=== PATIENT | female | born 1960 | race Caucasian/White ===

== ENCOUNTER → 2017-02-05 | Outpatient (CLI) | payer OTHER ==
[~2017-02-05] MED LIST: ADVIN10/60 INH; ALBU1AER9 INH; ASCO1TAB3 PO; CALCIUM 600+D+D OR; CHOL200010 OR; CPR500 PO; FLAX OIL OR; FLUO20CA20 OR; IBUP600T44 PO; MULT-506 PO; OXYC-57 PO; PRLSR20 PO; SNG10 PO; TRIA3AER NAE; VTMD PO; [UNRECOGNIZED DRUG - CODE] PO; [UNRECOGNIZED DRUG - OTHER] INH
== END ==
LOC: C.PAPS 18:04
PROVIDERS: ATTEND Obstetrics & Gynecology
DX: Z12.4 Encounter for screening for malignant neoplasm of cervix (principal)

== ENCOUNTER → 2018-01-02 | Outpatient (CLI) | payer OTHER | END | disposition home or self-care (01) | LOC: C.RDSM 13:43 | PROVIDERS: ATTEND Physical Medicine & Rehabilitation Sports Medicine | DX: M25.561 Pain in right knee (principal); M25.562 Pain in left knee ==

== ENCOUNTER 2021-11-27 06:21 | Observation (INO) ==
--- NOTE | 2021-11-15 16:40 | PAT Medication Instructions ---
Medication Instructions Date of Service November 15, 2021 Home Medications Balance Otc 1 tab PO QAM arginine oxoglurate 350 mg tablet,extended release (L-Arginine (alpha- ketoglutarate)) 750 mg PO QAM celecoxib 200 mg capsule (Celebrex) 200 mg PO QPM cetirizine 10 mg tablet (Zyrtec) 10 mg PO QPM ergocalciferol (vitamin D2) 1,250 mcg (50,000 unit) capsule (Vitamin D2) 1,250 mcg PO WK eszopiclone 2 mg tablet (Lunesta) 2 mg PO HS fluoxetine 10 mg tablet 10 mg PO QAM losartan 100 mg tablet 100 mg PO QPM multivitamin 1 tab PO QAM omeprazole 10 mg capsule,delayed release 10 mg PO QAM Continue as directed ergocalciferol (vitamin D2) 1,250 mcg (50,000 unit) capsule (Vitamin D2) 1,250 mcg PO WK (just do not take on morning of surgery) ASK your surgeon for instructions celecoxib 200 mg capsule (Celebrex) 200 mg PO QPM STOP taking 2 weeks before surgery Chrissy Adame Otc 1 tab PO QAM arginine oxoglurate 350 mg tablet,extended release (L-Arginine (alpha- ketoglutarate)) 750 mg PO QAM DO NOT take the morning of surgery multivitamin 1 tab PO QAM Take morning of surgery With a small sip of water, OTHERWISE NOTHING TO EAT OR DRINK AFTER MIDNIGHT: fluoxetine 10 mg tablet 10 mg PO QAM omeprazole 10 mg capsule,delayed release 10 mg PO QAM Take evening before surgery cetirizine 10 mg tablet (Zyrtec) 10 mg PO QPM eszopiclone 2 mg tablet (Lunesta) 2 mg PO HS losartan 100 mg tablet 100 mg PO QPM Other Notes If you have any questions please call us at [phone] or [phone] or [phone] or [phone]
--- NOTE | 2021-11-16 08:33 | Anesthesiology Consultation ---
Date of Service November 16, 2021 Assessment & Plan (1) Encounter for pre-operative examination: - egg allergy. - Pt reports PCP pre-op appointment today. Optimization note completed and faxed to PCP prior to end of appointment regarding h/o cardiac murmur. 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 Patient vaccinated. Surgeon arranging preop COVID testing, scheduled 11/23/2021. Awaiting results. Chart Review Chart Review: Pending: Refer to Additional Notes / Consult section and Patient seen in Pre Admission Testing History Surgery Operation Date: 11/27/21 08:10 Proposed Procedures p Left Total Knee Arthroplasty - Tung Rizzo MD Height/Weight Height: 5 ft 1 in Weight: 91.3 kg Allergies Allergy/AdvReac Type Severity Reaction Status Date / Time cefuroxime Allergy Intermediate SEVERE Verified 11/15/21 15:02 ITCHINESS OF FEET AND HANDS heparin Allergy Intermediate HIVES,REDNESS,ITCHINESS-AT Verified 11/15/21 15:02 IV SITE egg Allergy Unknown POSITIVE Verified 11/15/21 15:03 WITH ALLERGY TESTING Medications Home Medications Medication Instructions Recorded Confirmed Last Taken Balance Md Otc 1 tab PO QAM 11/15/21 11/15/21 Unknown arginine oxoglurate 350 mg 750 mg PO QAM 11/15/21 11/15/21 Unknown tablet,extended release (L-Arginine (alpha-ketoglutarate)) celecoxib 200 mg capsule (Celebrex) 200 mg PO QPM 11/15/21 11/15/21 Unknown cetirizine 10 mg tablet (Zyrtec) 10 mg PO QPM 11/15/21 11/15/21 Unknown ergocalciferol (vitamin D2) 1,250 1,250 mcg PO WK 11/15/21 11/15/21 Unknown mcg (50,000 unit) capsule (Vitamin D2) eszopiclone 2 mg tablet (Lunesta) 2 mg PO HS 11/15/21 11/15/21 Unknown fluoxetine 10 mg tablet 10 mg PO QAM 11/15/21 11/15/21 Unknown losartan 100 mg tablet 100 mg PO QPM 11/15/21 11/15/21 Unknown multivitamin 1 tab PO QAM 11/15/21 11/15/21 Unknown omeprazole 10 mg capsule,delayed 10 mg PO QAM 11/15/21 11/15/21 Unknown release Past Medical History Medical History (Updated 11/16/21 @ 09:16 by Bhargavi Newsome PA-C) Anxiety Cancer UTERINE Cardiac murmur HX-NO CARDIOLOGY Chronic back pain NECK-FULL ROM Depression GERD (gastroesophageal reflux disease) controlled, stable per pt History of COVID-19 DX'D 07/20/22 HOME TEST ONLY-SORE THROAT, HEADACHE, LOSS TASTE AND SMELL, FATIGUE, COUGH, CHILLS-RECOVERED AT HOME-SYMPTOMS RESOLVED Hyperlipidemia NO MEDS Hypertension controlled, stable per pt Osteoarthritis Pre-diabetes NO MEDS Patient denies h/o stroke, seizures, heart attack, heart failure, blood clots or blood transfusions. Exercise / Class Metabolic Activity II 4-5 Yardwork/Stairs/Walk up hill (denies CP or SOB with 1 FOS) Past Family History Family History Mother Family history of reaction to anesthesia PONV Family history of diabetes mellitus Past Surgical History Surgical History History of colonoscopy History of hysterectomy TOTAL Nausea and vomiting after administration of anesthetic agent Past Anesthesia History No Hx of Anesthesia Complications and Other (mother with PONV) History of PONV No Hx of Motion Sickness and History of PONV Social History Smoking Status: Never smoker Do You Dip or Chew Tobacco: No Hx Alcohol Use: No Hx Substance Use: No Review of Systems Occasional chronic, palpitations when stressed, denies associated dizziness or lightheadedness. Ongoing x years, denies change or worsening. Patient denies chest pain, shortness of breath, dyspnea on exertion, snoring, witnessed apneas, fever, chills, cough, wheezing. Physical Exam Vital Signs Vitals BP 115/77 P 81 TEMP 98.2 SP02 97% on RA RESP 17 Physical Full cervical extension range of motion without pain TMD 3.5 finger breaths Mallampati Score 2 Dentition: intact, missing-lower left side tooth, several caps and bridge lower bilat-none in front, permanent brace back of lower front teeth; denies chipped or loose teeth Lungs: normal respiratory effort. Clear throughout to auscultation, no adventitious breath sounds Cardiac: regular rate and rhythm, no murmurs noted Carotid arteries: negative bruit bilat Lab Results Anesthesia Preop Results Results Anesthesia Widget: WBC 4.15 K/uL (4.8-10.8) L 11/16/21 Hgb 14.0 g/dL (12.0-16.0) 11/16/21 Hct 43.0 % (37-47) 11/16/21 Plt 281 K/uL (130-400) 11/16/21 PT 10.4 Seconds (9.0-12.0) 11/16/21 PTT 29.0 Seconds (21.0-31.0) 11/16/21 INR 1.0 (0.9-1.1) 11/16/21 HA1c 6.1 % (4.5-5.6) H 11/16/21 Blood Type O Positive 11/16/21 Antibody Screen NEGATIVE 11/16/21 Testing Laboratory Results 11/13/2021 SODIUM: 142 POTASSIUM: 4.3 CHLORIDE: 104 CO2: 32 BUN: 15 CREATININE: 0.5 GLUCOSE: 122 ALT: 44 Alk phos: 97 AST: 56 A1c: 5.9% Electrocardiogram Date: 11/16/21 Sinus rhythm with PACs, rate 67 bpm Chest X-Ray Date: 11/16/21 FINDINGS: Frontal and lateral radiographs of the chest demonstrate the cardiomediastinal silhouette to be within normal limits. The lungs are clear of alveolar opacities. There is no evidence for effusion bilaterally. There is no evidence for vascular congestion. There is no acute osseous pathology. IMPRESSION: 1. No acute cardiopulmonary disease.
[~2021-11-27 06:21] MED LIST changes: +ACETAMINOPHEN 500 MG TAB PO SCH; -ADVIN10/60 INH; -ALBU1AER9 INH; -ASCO1TAB3 PO; -CALCIUM 600+D+D OR; -CHOL200010 OR; -CPR500 PO; +CeleBREX 200 MG CAP PO SCH; +FAMOTIDINE 20 MG TAB PO SCH; -FLAX OIL OR; -FLUO20CA20 OR; +GABAPENTIN 600 MG DOSE PO SCH; -IBUP600T44 PO; +LR 500ML BOLUS, THEN 15ML/HR IV SCH; +LR 60ML/HR IV SCH; +METOCLOPRAMIDE HCL 10 MG TABLET PO SCH; -MULT-506 PO; -OXYC-57 PO; -PRLSR20 PO; +ROPIVACAINE 0.5% HCL/PF 150 MG, BUPIVACAINE 0.75% MPF 20 ML, EPINEPHrine 0.15 MG, Ketor... INFIL SCH; -SNG10 PO; +TRANEXAMIC ACID 1,000 MG **IV Intra-op IV SCH; +TRANEXAMIC ACID 1,000 MG **IV Pre-op IV SCH; -TRIA3AER NAE; -VTMD PO; -[UNRECOGNIZED DRUG - CODE] PO; -[UNRECOGNIZED DRUG - OTHER] INH; +ceFAZolin 2000MG 2,000 MG/15 ML SYR IV SCH; +cloNIDine HCL 0.1 MG/24 HR TRANSDERM SYS TD SCH; +dexAMETHasone 4 MG TAB PO SCH; +oxyCODONE HCL 10 MG TABCR (OxyCONTIN) PO SCH; +traMADol HCL 50 MG TABLET PO SCH
[2021-11-27] MEDS ORDERED: EPINEPHrine INJ 1 MG/ML AMP ONE (06:28)
[2021-11-27] MEDS ORDERED: BUPIVACAINE 0.5 % 5 MG/1 ML PF 10ML VIAL ONE (06:28)
[2021-11-27] MEDS ORDERED: ROPIVACAINE 0.5% 5 MG/ML 30 ML VIAL ONE (06:28)
--- NOTE | 2021-11-27 08:30 | History & Physical Bridge Note ---
Date of Service November 27, 2021 History & Physical Bridge Note I have examined the patient, reviewed the History & Physical and in the interval since the performance of the History & Physical I have noted the following changes of clinical significance: no changes noted
[2021-11-27] MEDS ORDERED: ORTHO JOINT ANESTHETIC ONE (09:00)
[2021-11-27] MEDS ORDERED: VANCOMYCIN HCL 1000MG/20ML VIAL ONE (09:00)
[2021-11-27] MEDS ORDERED: fentaNYL citrate 100 MCG/2 ML VIAL ONE (09:09)
[2021-11-27] MEDS ORDERED: MIDAZOLAM HCL 1 MG/ML 2ML VIAL ONE ×2 (09:09→10:16)
[2021-11-27] MEDS ORDERED: PHENYLEPHRINE HCL 10 MG/ML VIAL ONE (09:10)
[2021-11-27] MEDS ORDERED: PROPOFOL IV EMULSION 10 MG/ML 20 ML VIAL IV ONE ×2 (11:01→11:55)
--- NOTE | 2021-11-27 13:10 | Operative Report ---
Post Operative Report Pre & Post Diagnosis Operation Date: 11/27/21 08:30 Pre-Op Diagnosis: Left Knee Osteoarthritis Post-Op Diagnosis: Left Knee Osteoarthritis I identified the patient and participated in the time-out.: Yes Procedure Operation Date: 11/27/21 08:30 Actual Procedures p Left Total Knee Arthroplasty(Left) - Tung Rizzo MD Surgeon Tung Rizzo MD Pattern Scratcher María Bernard PA-C Estimated Blood Loss 25 Findings Consistent with Post-Op Diagnosis Specimens Bone and soft tissue Anesthesia Type MAC Spinal Regional Description of Procedure Patient was taken to the operating room and placed under IV sedation with spinal anesthesia and given peripheral nerve block. She was given IV Ancef for surgical prophylaxis. Time out was performed. She was prepped and draped in routine sterile fashion. Is present during the entire case and assisted with positioning, tissue retraction, implantation of hardware, trialing of implants, irrigation, cementing, closure and dressings. Please see Dr. Rizzo's operative report for further detail regarding today's procedure. She was awakened and transferred to recovery room in stable condition. I attest to the content of the Intraoperative Record and any orders documented therein. Any exceptions are noted below.
[2021-11-27] MEDS ORDERED: ePHEDrine sulfate 50 MG/ML AMP IV PRN (13:14)
[2021-11-27] MEDS ORDERED: ATROPINE SULFATE 0.1 MG/ML 10ML SYR IV PRN (13:14)
--- NOTE | 2021-11-27 13:14 | Operative Report ---
Post Operative Report Pre & Post Diagnosis Operation Date: 11/27/21 08:30 Pre-Op Diagnosis: Left Knee Osteoarthritis Post-Op Diagnosis: Left Knee Osteoarthritis I identified the patient and participated in the time-out.: Yes Procedure Operation Date: 11/27/21 08:30 Actual Procedures p Left Total Knee Arthroplasty(Left) - Tung Rizzo MD Surgeon Tung Rizzo MD Global Human Resources Director María Bernard. Physicians warehouse administrative assistant. No resident or fellow available. Estimated Blood Loss 25 Findings Consistent with Post-Op Diagnosis Specimens Bone and soft tissue left knee Drains None Complications none Disposition Accompanied Patient To Recovery: No Disposition: Recovery Room Indications Larissa is 61 years old and severe arthritis of her left knee refractory to nonsurgical methods of management. She has elected to proceed with operative intervention. Description of Procedure Informed consent obtained. Patient identified. She identified the operative site as the left knee. I marked with my initials. A preoperative surgical timeout was performed and a preop dose of IV antibiotics was given. She was taken to the operating room positioned supine on the OR table. Bump was placed into the left calf and a tourniquet was applied to the left thigh. The leg was prescrubbed prepped and draped in usual sterile fashion. DVT prophylaxis with foot pumps intraoperatively and postoperatively with early mobility mechanical devices and Lovenox. The exam under anesthesia showed range of motion 0/3/120 with a little more than 1+ LCL laxity in mid position and at 90 degrees. The knee was stable in full extension and she had trace MCL laxity at 30 degrees. There was positive effusion within the knee and varus alignment. Bony prom inences inspected and padded. The limb was exsanguinated with the Esmarch. Tourniquet inflated 275 mmHg. Midline longitudinal incision was made followed by a medial parapatellar arthrotomy. Soft tissue on the anterior aspect the distal femur was resected. A an extensile medial release was performed. The retropatellar fat pad was resected. There seemed to be a fair amount of scarring and tightness laterally. The patella was difficult to jp and bony geometry made it difficult to access the anterolateral quadrant of the knee. The synovial reflection in the lateral gutter was released but a true lateral release was not performed. Marginal osteophytes throughout the knee were removed. There was grade 4 chondrosis in the medial compartment of the knee with onxo-kh-bemn changes and wear medially. The lateral compartment looked pretty normal with an intact meniscus. The medial meniscus was deficient. There was grade 3 chondrosis of the patella with sizable marginal osteophytes. Marginal osteophytes around the patella were removed and the soft tissue around the patella was also excised. The cruciate ligaments were sacrificed and the knee was carefully subluxated. Prior to this I inserted a pin into the tibial tubercle to prevent any damage to the patellar tendon. Subsequently the remainder of the menisci were removed as well as marginal osteophytes throughout the knee both medial more so than lateral. Osteophytes under the collateral ligaments were removed. A pilot plant operator hole was drilled into the tibia just in front of the tibial spines and centered between them. I could not advance the guide krystal all the way down the femur and therefore I use the sentinel reamers under hand power and reaming to open up the canal to a size 8 which allowed insertion of the intramedullary guide krystal. The 0 degree cutting block was aligned with the tibial tubercle pinned in the place and set to cut 10 mm off of the lateral side corresponding to a 2 mm cut medially. The knee was then placed into full extension and the extra medullary alignment krystal was utilized to assess slope and varus valgus alignment. The slope was parallel to the tibia and the krystal bisected the ankle joint and intersected the second ray with the foot in the plantigrade position. We then made the cut. I had some difficulty with the anterolateral quadrant as I could get the saw over there so had to do a good bit of that by hand with rongeur and rasp. I ensured that it was smoothed out all the way across and visualize the full margin of the lateral tibia. Then went ahead and drilled a pilot plant operator hole into the distal femur and inserted the distal distal femoral cutting guide 7 degree valgus 12 mm thick cut based upon preoperative templating. This cut was made and the extension gap was and 8. I then went back and recut the tibia taking additional 2 mm. I did more medial release as well and then we had a symmetric 10 in extension. Perhaps a trace bit of LCL laxity. We then went ahead and sized the femur to a #2. The tibia was previously sized to a #2 as well. The external rotation drill holes were made matching the epicondylar axis. The collateral ligaments were protected and the anterior and posterior chamfer cuts were made. This was followed by application of the box cutting guide and the box cut. The posterior osteophytes were removed and a trial femur was inserted. The tibia was exposed and the tibia was prepared with the keel and punch. Trialing was performed with a 10 which showed a little more than 1+ laxity laterally in mid position and at 90. The knee had trace laxity in full extension laterally. It was tighter medially. I think going up to the 12.5 mm thick implant would be best. I then prepared the patella by measuring at 22 mm in thickness and selecting the 32 mm 3 peg oval dome patella. The patella Clamp was applied and set to preserve 15 mm of bone. The cut was made and the paddle was aligned distal and medial and aligned with the trochlea and slight knee flexion. These drill holes were made and the patella button was applied and it tracked well with no hands technique. The lateral border of the patella was resected with a rongeur and some remaining cartilage was removed. The canals were plugged and the back of the knee joint except for the area of the neurovascular bundle was injected with the Ortho joint mix and then copiously irrigated. The bony surfaces were meticulously cleaned and dried. 2 bags of Simplex P cement were mixed and then while in a doughy state smears were placed on the posterior condyles and then the femur tibia and patella were cemented into place and held in full extension until the cement hardened. The tourniquet was let down at 123 minutes and meticulous hemostasis was performed. The patient received a preop and postop dose of TXA. I trialed with a 10 and then 12.5 mm thick polyethylene spacer. With the 10 there was slight hyperextension of the knee and I think some slight medial and increased lateral laxity especially in mid position. Going up to the 12.5 was readily excepted the knee was fully straight I was able to be bent past 90. There is no medial laxity and no lateral laxity in full extension. The knee demonstrated 1+ LCL laxity in mid position and trace laxity at 90. The final component was inserted. The back of the knee was inspected for cement and removed as encountered. Irrigation was then performed. Composite patellar thickness was 23 mm. [place] assisted flexion with extensor mechanism closed was 115 degrees. The extensor mechanism was closed above the equator the patella with interrupted #2 FiberWire and below the equator with running and interrupted #1 Vicryl. Skin was closed in layers with 0 and 2-0 Vicryl to kirit on the skin. The leg was cleaned with wet and dry sponges and a bulky soft sterile dressing was applied Xeroform 4 x 4's ABD full-length [place] wrap. Knee immobilizer. She was taken to recovery room in stable stable condition. There were there were no complications. Counts were correct. Blood loss is estimated to be 25 cc. The resected bone and soft tissue were sent for specimen. At the conclusion the operation I attempted to contact the patient's but he was not available by phone. The components inserted were the [employer] PFC Sigma rotating platform knee size 2 left femoral posterior stabilized implant a size 2 mobile-bearing keeled tibial tray a 32 mm 3 peg oval dome patella and a size to 12.5 mm thick polyethylene insert. She will be rehabilitated according to the total knee protocol. I attest to the content of the Intraoperative Record and any orders documented therein. Any exceptions are noted below.
[2021-11-27] MEDS ORDERED: hydrALAZINE HCL 20 MG/ML VIAL IV PRN (13:30)
--- NOTE | 2021-11-27 13:47 | Anesthesiology Progress Note ---
Date of Service November 27, 2021 Anesthesia Post Procedure Vital Signs Vital Signs: Temp Pulse Pulse Resp BP Pulse Ox 11/27/21 13:45 99 H 16 160/93 H 93 11/27/21 13:35 36.3 C L 99 H 16 152/91 H 93 11/27/21 13:25 103 H 15 161/96 H 95 11/27/21 13:15 101 H 16 156/97 H 92 11/27/21 13:08 36.1 C L 102 H 12 143/90 H 95 11/27/21 07:08 36.8 C 85 18 113/79 96 Pain Intensity Left Knee: Pain Intensity: 5 Transfer of Care Handoff Completed per policy Notes Mental Status: alert / awake / arousable Patient Amnestic to Procedure: Yes Nausea / Vomiting: adequately controlled Pain: adequately controlled Airway Patency, RR, SpO2: stable & adequate BP & HR: stable & adequate Hydration State: stable & adequate Neuraxial Anesthesia: was administered and sensory block is resolving Anesthetic Complications: no major complications apparent
--- NOTE | 2021-11-27 13:54 | XRay Report ---
XR knee LT 1 or 2V routine HISTORY: 61 years-old Female Surgical Post Op left knee total joint arthroplasty COMPARISON: Leg length study radiographs 11/16/2021 TECHNIQUE: 2 views of the left knee FINDINGS: Left knee total joint arthroplasty and patella resurfacing. Anterior skin kirit are noted along wit h expected postoperative soft tissue swelling with deep tissue air. No acute fracture, malalignment o r unexpected opaque foreign body. IMPRESSION: Left knee total joint arthroplasty with expected postoperative changes. ACT 112: Negative or not required by law. The above report was generated using voice recognition software. It may contain grammatical, syntax o r spelling errors. Electronically signed by: Tab Garcia M.D. 11/27/2021 1:52 PM
[2021-11-27] MEDS ORDERED: bisacodyL 10 MG SUPP PR PRN (14:13)
[2021-11-27] MEDS ORDERED: NALOXONE HCL 0.4 MG/1 ML VIAL/CARP IV PRN (14:13)
[2021-11-27] MEDS ORDERED: HYDROmorphone INJ 0.5 MG/0.5 ML SYR IV PRN (14:13)
[2021-11-27] MEDS ORDERED: traMADol HCL 50 MG TABLET PO PRN (14:13)
[2021-11-27] MEDS ORDERED: METOCLOPRAMIDE HCL INJ 5 MG/ML 2 ML VIAL IV PRN (14:13)
[2021-11-27] MEDS ORDERED: diphenhydrAMINE 50 MG/ML VIAL IV PRN (14:13)
[2021-11-27] MEDS ORDERED: SODIUM CHLORIDE 0.9% 1000ML 1,000 ML IV SCH (14:13)
[2021-11-27] MEDS ORDERED: ONDANSETRON INJ 2 MG/ML 2 ML VIAL IV PRN (14:13)
[2021-11-27] MEDS ORDERED: HYDROmorphone INJ 1 MG/ML SYRINGE IV PRN (14:13)
[2021-11-27] MEDS ORDERED: MAGNESIUM HYDROXIDE SUSP 30 ML UDC PO PRN (14:13)
[2021-11-27] MEDS: oxyCODONE HCL IR 5 MG TAB (IMMEDIATE RELEASE) PO PRN ×2 (14:38→23:57)
[2021-11-27] MEDS: CHECK CLONIDINE PATCH PLACEMENT SCH ×4 (14:42→23:05)
[2021-11-27] MEDS: ACETAMINOPHEN 500 MG TAB PO SCH ×2 (14:55→21:50)
[2021-11-27] MEDS: KETOROLAC 30 MG/ML VIAL IV SCH ×2 (14:56→19:59)
--- NOTE | 2021-11-27 18:30 | Progress Notes ---
DATE OF SERVICE: 11/27/2021 Resting comfortably in bed. Pain 3/10. Surgical findings are reviewed and discussed. She is afebri le. Her vital signs are stable. Dorsalis pedis is 1+. She has intact sensation, but slight tinglin g. 5/5 motor strength. She is able to lift her leg. Dressing is clean, dry and intact. Continue with routine postop care. She is stable. We talked about elevating the leg and wearing the brace. Job ID: [id number]
[2021-11-27] MEDS: DOCUSATE SODIUM 100 MG CAP PO SCH (19:56)
[2021-11-27] MEDS: ceFAZolin 2000MG 2,000 MG/15 ML SYR IV SCH (19:56)
[2021-11-27] MEDS ORDERED: LOSARTAN POTASSIUM 50 MG TAB PO SCH (21:00)
[2021-11-27] MEDS ORDERED: SENNA 8.6 MG TAB PO SCH (21:00)
[2021-11-27] MEDS ORDERED: CETIRIZINE HCL 10 MG TABLET PO SCH (21:00)
[2021-11-28] MEDS: KETOROLAC 30 MG/ML VIAL IV SCH ×2 (03:04→09:29)
[2021-11-28] MEDS: ACETAMINOPHEN 500 MG TAB PO SCH ×2 (05:06→14:26)
[2021-11-28] MEDS: ceFAZolin 2000MG 2,000 MG/15 ML SYR IV SCH (05:06)
[2021-11-28 07:09] LABS: Hematocrit (blood only) 34.9 % (37-47); Hemoglobin 11.6 g/dL (12.0-16.0); Mean Corpuscular Hgb Conc 33.2 g/dL (32-36); Mean Corpuscular Volume 90.2 fL (80-100); Mean Platelet Volume 10.3 fL (7.4-10.4); Platelet Count 270 K/uL (130-400); RDW Coefficient of Variation 13.1 % (11.5-14.5); RDW Standard Deviation 43.1 fL (36.4-46.3); Red Blood Count 3.87 M/uL (4.2-5.4); White Blood Count 12.95 K/uL (4.8-10.8)
[2021-11-28 07:21] LABS: BUN Creatinine Ratio 21.3 (10-20); Calcium 8.7 mg/dl (8.5-10.1); Creatinine Clr Calc Pharmacy 58.7 ml/min; Est GFR (African American) 114.2 ml/min; Est GFR (Non-African American) 98.5 ml/min
[2021-11-28] MEDS: oxyCODONE HCL IR 5 MG TAB (IMMEDIATE RELEASE) PO PRN ×2 (07:27→12:02)
[2021-11-28] MEDS ORDERED: ENOXAPARIN INJ 30 MG/0.3 ML SYR SQ SCH (08:00)
[2021-11-28] MEDS ORDERED: dexAMETHasone 4 MG TAB PO SCH (08:00)
[2021-11-28] MEDS: CHECK CLONIDINE PATCH PLACEMENT SCH (08:19)
[2021-11-28] MEDS: DOCUSATE SODIUM 100 MG CAP PO SCH (08:20)
[2021-11-28] MEDS ORDERED: PANTOprazole 40 MG TAB PO SCH (09:00)
[2021-11-28] MEDS ORDERED: FLUoxetine HCL 10 MG CAP PO SCH (09:00)
[2021-11-28] MEDS ORDERED: ARGININE OXOGLURATE 350 MG PO SCH (09:00)
[2021-11-28] MEDS ORDERED: MULTIVITAMIN TAB PO SCH (09:00)
--- NOTE | 2021-11-28 11:06 | Progress Notes ---
DATE OF SERVICE: 11/28/2021. Resting comfortably in bed. She has done well with PT and OT. No difficulty with breathing or chest pains. She did not rest well overnight. Her pain is well controlled and the block has worn off. S he is afebrile. Her vital signs are stable. Her blood pressure was a little bit high last night, bu t she is now normotensive. White count 13, which is likely secondary to stress. Hemoglobin 12, viki tocrit 35, platelets 270. PRP is noted. Knee radiograph reviewed yesterday. Today, we reviewed wit h her. Components are in good position. There is no evidence of hardware failure, malpositioning, o r fracture. No complication. On exam, she has intact sensation, 5/5 ankle and toe plantar flexion, dorsiflexion, inversion, eversion. Dorsalis pedis is 1+. Dressing clean and dry. She is able to do a leg raise with minimal lag. She is suitable for discharge. We will set her up for outpatient PT. She will follow up with me in 2 weeks. Lovenox for DVT prophylaxis, which she has tolerated thus f ar. Monitoring with CBC. If there are any problems with pain, swelling, fevers or any other problem s or questions, call my office. Rest a lot, elevate, ice. Do home PT. Will try to set up outpatien t therapy for Friday. Wound care instructions were given. Leave intact until seen in PT. Walker pre scription. I encouraged her to get further evaluation for sleep apnea. She apparently was diagnosed with this before and had a CPAP machine, but she cannot sleep with it. The anesthesiologist raised the issue of potential sleep apnea. We talked to her about her medications in relationship to sleep apnea and trying to avoid addition of narcotics with her sleep aid. She should also get her sleep ap cezar reevaluated and treated as appropriate. Job ID: [id number]
--- NOTE | 2021-11-28 12:10 | Discharge Summary ---
Date of Service November 28, 2021 Discharge Data Procedures Performed Operation Date: 11/27/21 08:30 Actual Procedures p Left Total Knee Arthroplasty(Left) - Tugn Rizzo MD Hospital Course (1) Status post total left knee replacement: Patient was admitted to [facility] after undergoing an elective left total knee arthroplasty with Dr. Tung Rizzo. Surgery was performed on November 27, 2021. Her surgery was performed with spinal anesthesia, IV sedation and a peripheral nerve block. She was given 2 g of IV Ancef for surgical prophylaxis which was continued for 24 hours after her procedure. Postoperative x-rays performed in the recovery unit show a stable left knee prosthesis. She was allowed out of bed, weight-bear as tolerated with the assistance of a walker and a knee immobilizer when out of bed during her inpatient stay. She was seen and evaluated by physical therapy and Occupational Therapy. Her regular home medications were continued. She was placed on IV Toradol, tramadol, oxycodone, Tylenol for pain control. She was placed on Colace, Senokot and Dulcolax for bowel regimen as needed for constipation. She was given a regular gluten-free diet and tolerated a regular diet during her inpatient stay. She did not develop any postoperative nausea, vomiting, lightheadedness or dizziness, chest pains or shortness of breath. She was instructed to be out of bed with the knee immobilizer until her postoperative follow-up on Friday with physical therapy. She was seen by case management. Had initially planned for [facility] home health but then elected to attend outpatient physical therapy in our office. Home health was canceled. She was given a prescription for a walker as she was unable to borrow the one she had to borrow. She was safe and did very well on physical therapy and Occupational Therapy. She was deemed safe for discharge to home. She was placed on Lovenox 30 mg subcu every 12 hours which was started on postoperative day 1. She was also placed on AV impulse boots and PEPE stockings on her right lower extremity for DVT prophylaxis. She did develop some high blood pressure through the night of her surgery day. Is back to normal this morning. Her labs are stable with a slightly elevated white blood cell due to the Decadron. She also developed some mild postoperative acute blood loss anemia. No transfusions were necessary. She will start physical therapy as an outpatient on Friday, November 30, 2021 and a dressings will be changed at that time. Discharge instructions were provided. All questions were answered. She understands and agrees with the plan. She was discharged to her home with her in stable condition on November 28, 2021.
== END 2021-11-28 15:13 | disposition home or self-care (01) ==
LOC: ASU 06:21 → 3E 06:21
DX: M17.12 Unilateral primary osteoarthritis, left knee; Z88.8 Allergy status to other drugs, medicaments and biological substances; Z79.899 Other long term (current) drug therapy; Z91.012 Allergy to eggs